=== PATIENT | female | born 1970 | race Caucasian/White ===

== ENCOUNTER 2018-09-01 12:00 | Inpatient (IN) ==
[2018-09-01] MEDS ORDERED: Td (TENIVAC) Vaccine 0.5 ML VIAL IM ONE (13:22)
--- NOTE | 2018-09-01 13:24 | Emergency Department Note ---
Disposition Clinical Impression: Cellulitis and abscess of left leg Dog bite Qualifiers: Encounter type: initial encounter Qualified Code(s): W54.0XXA - Bitten by dog, initial encounter Disposition: Admitted As Inpatient Condition: Fair Time of Disposition: 19:06 General Adult HPI - General Chief complaint: ED Wound/Laceration Stated complaint: dog bite Time Seen by Provider: 09/01/18 12:05 Source: patient, EMS Limitations: no limitations Nursing Notes Reviewed: Yes Vital Signs Reviewed: Yes - History of Present Illness HPI Narrative: Ms. Celaya is a 48F who presents today after being bit by a pitbull early Tuesday. Reports she originally went to [place] ED after being bit, however she was referred to [facility] for further evaluation. Patient stated she was unable to make it up to [facility]. Reports she has been waiting on her neighbor, to whom the dog belongs, for a ride, however she was unable to wait for further care and pain. Patient does report subjective chills. Denies any fever, stating she has not measured her temperature at home. She denies any new numbness or tingling. No significant weakness. She does report significant malodor from the left lower leg which makes her nauseous. She reports that to the best of her knowledge the dog is adequately vaccinated and has not been foaming at the mouth. She is unsure of when her last tetanus booster was. Pain Scale: 10 - Related Data Previous Rx's Medication Instructions Recorded Clarithromycin [Biaxin] 500 mg PO BID #20 tablet 02/18/18 Allergies Allergy/AdvReac Type Severity Reaction Status Date / Time No Known Allergies Allergy Unverified 02/24/15 11:27 Constitutional: Reports: chills. Denies: fever, weakness Cardiovascular: Denies: chest pain, palpitations Respiratory: Denies: cough, dyspnea, wheezes Musculoskeletal: Denies: joint swelling Integumentary: Reports: as per HPI Neurological: Denies: headache, weakness, numbness, paresthesias Past Medical History - Past Medical History Attestation: Yes The following information was validated with the patient. Source: patient Medical history: Reports: no medical history Psychiatric history: Reports: anxiety, depression REHAB SPECIALIST history: Reports: no REHAB SPECIALIST history - Social History Smoking Status: Current every day smoker Smokeless Tobacco Status: No Alcohol use: Reports: none Drug use: Reports: methamphetamine, IV Drug Use Physical Exam - General Limitations: no limitations General appearance: alert, anxious - Head Head exam: atraumatic, normocephalic, normal inspection - Eye Eye exam: Present: normal appearance, PERRL, EOMI. Absent: scleral icterus - Chest Chest inspection: Present: normal inspection, symmetric chest wall rise. Absent: tenderness - Respiratory Respiratory exam: Present: normal lung sounds bilaterally. Absent: respiratory distress, wheezes - Cardiovascular Cardiovascular exam: Present: regular rate, normal rhythm, normal heart sounds, +S1, +S2 - Abdominal Exam Abdominal exam: Present: soft, Non-Tender. Absent: tenderness, distention, guarding, rebound, rigidity - Extremities Exam Extremities exam: Present: tenderness (on left upper thigh near dog bite ). Absent: pedal edema, joint swelling, calf tenderness - Neurological Exam Neurological exam: Present: alert, oriented X3. Absent: motor sensory deficit - Skin Skin exam: Present: warm, dry, other (Laceration to left upper medial thigh with largest dimension approximately 10cm in length. Surrounding small healing lacerations noted as well. Wound is very malodorous and has visible exudate.) Course Course Narrative: Patient presented complaining of malodorous laceration. Initial history and physical exam revealed concern for cellulitis. A less likely diagnosis considered including necrotizing fasciitis due to no fever, no rapid progression of wound, or septic appearance. Initial evaluation included CBC, BMP, blood cultures, wound culture and a CT of the left lower extremity and pelvis. Gen. surgery was contacted in order to evaluate patient for possible need of surgical debridement. Patient was started empirically on IV vancomycin and Zosyn. She was also given IV pain medication. Gen. surgery elected to keep patient nothing by mouth for surgical debridement t his evening. Hospitalist was contacted and accepted patient for admission to general surgery consult. - Reevaluation(s) Reevaluation #1: Pt reports adequate pain relief with medication. No new complaints at this time. Time: 16:30 Reevaluation #2: Pt resting comfortably with no new complaints. Time: 16:50 - Consultations Consultation #1: Dr. Liban Grant of general surgery was consulted. Pictures of the wound were sent via secure [employer] message. He states he will come evaluate the patient momentarily. After evaluation he recommended continue NPO status to prepare for surgical debridement this evening. Time: 16:45 Consultation #2: Hospitalist, Dr Quesada, was contacted and accepted the patient for admission. Time: 17:25 Vital Signs Temperature 98.4 F 09/01/18 12:05 Pulse Rate 90 09/01/18 12:05 Respiratory Rate 20 09/01/18 12:05 Blood Pressure 127/67 09/01/18 12:05 O2 Sat by Pulse Oximetry 100 09/01/18 12:05 Temperature 98.0 F 09/01/18 16:35 Pulse Rate 79 09/01/18 16:35 Respiratory Rate 16 09/01/18 16:35 Blood Pressure 105/71 09/01/18 16:35 O2 Sat by Pulse Oximetry 100 09/01/18 16:35 Oxygen Delivery Oxygen Delivery Room Air Medical Decision Making - MDM Narrative Medical decision making narrative: Patient presented complaining of malodorous laceration. Initial history and physical exam revealed concern for cellulitis. A less likely diagnosis considered including necrotizing fasciitis due to no fever, no rapid progression of wound, or septic appearance. Initial evaluation included CBC, BMP, blood cultures, wound culture and a CT of the left lower extremity and pelvis. Gen. surgery was contacted in order to evaluate patient for possible need of surgical debridement. Patient was started empirically on IV vancomycin and Zosyn. She was also given IV pain medication. - Medical Records Medical records reviewed: Yes I reviewed the patient's medical records. - Lab Data Lab results reviewed: Yes I reviewed the patient's lab results. Result diagrams: 09/02/18 01:27 09/02/18 01:27 Lab Results 09/01/18 09/01/18 09/01/18 Range/Units 13:50 13:50 16:58 WBC 16.6 H (4.3-11.1) K/mcL RBC 4.33 (3.82-4.97) M/mcL Hgb 13.7 (11.5-15.4) g/dL Hct 41.7 (35.3-44.9) % MCV 96.3 (83.0-100.0) fL MCH 31.6 (28.0-33.3) pg MCHC 32.9 (31.6-35.5) g/dL RDW 12.5 (11.5-14.5) % Plt Count 257 (140-400) K/mcL MPV 11.0 (9.4-12.4) fL Seg Neutrophils % 79.0 % Band Neutrophils % 6.0 H (0-4) % Lymphocytes % 10.0 % Monocytes % 5.0 % Neutrophils # 14.1 H (1.6-8.9) K/mcL Lymphocytes # 1.7 (0.6-4.6) K/mcL Monocytes # 0.8 (0.0-1.3) K/mcL Platelet Estimate Normal (Normal) ESR 36 H (0-15) mm/hr Sodium 134 L (136-145) mEq/L Potassium 3.4 L (3.5-5.1) mEq/L Chloride 105 (98-107) mEq/L Carbon Dioxide 21 L (23-29) mEq/L BUN 18 (6-20) mg/dL Creatinine 1.11 (0.60-1.20) mg/dL Est GFR ( Amer) > 60 (> 60) Est GFR (Non-Af Amer) 52 L (> 60) BUN/Creatinine Ratio 16 (6-26) Glucose 194 H (70-105) mg/dL Calculated Osmolality 285 (280-300) Lactic Acid (0.5-2.2) mmol/L Calcium 9.4 (8.6-10.3) mg/dL 09/01/18 Range/Units 16:58 WBC (4.3-11.1) K/mcL RBC (3.82-4.97) M/mcL Hgb (11.5-15.4) g/dL Hct (35.3-44.9) % MCV (83.0-100.0) fL MCH (28.0-33.3) pg MCHC (31.6-35.5) g/dL RDW (11.5-14.5) % Plt Count (140-400) K/mcL MPV (9.4-12.4) fL Seg Neutrophils % % Band Neutrophils % (0-4) % Lymphocytes % % Monocytes % % Neutrophils # (1.6-8.9) K/mcL Lymphocytes # (0.6-4.6) K/mcL Monocytes # (0.0-1.3) K/mcL Platelet Estimate (Normal) ESR (0-15) mm/hr Sodium (136-145) mEq/L Potassium (3.5-5.1) mEq/L Chloride (98-107) mEq/L Carbon Dioxide (23-29) mEq/L BUN (6-20) mg/dL Creatinine (0.60-1.20) mg/dL Est GFR ( Amer) (> 60) Est GFR (Non-Af Amer) (> 60) BUN/Creatinine Ratio (6-26) Glucose (70-105) mg/dL Calculated Osmolality (280-300) Lactic Acid 1.7 (0.5-2.2) mmol/L Calcium (8.6-10.3) mg/dL - Radiology Data Radiology results reviewed: Yes I reviewed the patient's radiology results. Lower Extremity CT 09/01/18 14:37 IMPRESSION: 1. Subcutaneous fat stranding, skin thickening, and subcutaneous gas in the medial aspect of the left thigh compatible with cellulitis. No drainable fluid collection. 2. No acute osseous abnormality. D/ / Sean Larry MD / Sean Larry MD Interpreting Provider: Sean Larry MD Pelvis CT 09/01/18 15:29 IMPRESSION: Partial imaging of inflammatory fat stranding along the imaged portions of the medial left thigh with a small foci of gas. No evidence of an organized drainable fluid collection. Correlate for signs or symptoms of a cellulitis. Please refer to the dedicated CT of the left lower extremity for additional information. D/ / Ray Shaw / Ray Shaw Interpreting Provider: Ray Shaw Attestation Statement - Attestation Attestation: I, Jesse Araujo, examined this patient and my medical decision-making was reviewed with the ROAD MECHANIC/PA/Advanced Practice Nurse/Resident Physician. I agree with the documented findings, disposition and treatment plan as described except to the extent set forth below. 48-year-old female presents emergency department for evaluation of pain to the left proximal medial thigh. Patient was bitten by a dog 5 days ago, she was evaluated at [place] emergency department and referred to a tertiary care center for further care and evaluation. Patient did not go because she was unable to find a ride. She has had progressive worsening of her pain. She now presents with foul-smelling wound to the left proximal medial thigh with purulent drainage. No crepitus noted on exam however patient had CT which shows deep wou nd. Patient is afebrile emergency department. We spoke with the surgeon who will take her to the OR for cleaning out of her wound and further care. She is started on antibiotics in the emergency department after the initial evaluation.
[2018-09-01] MEDS ORDERED: *HR* FentaNYL (PF) 100 MCG/2 ML VIAL IVP ONE ×2 (13:33→16:18)
[2018-09-01] MEDS ORDERED: Piperacillin/Tazobactam 3.375 GM in 0.9 % Sodium Chloride Mini Bag 100 ML IVPB ONE (14:06)
[2018-09-01] MEDS ORDERED: Vancomycin 2,000 MG in D5% in Water 250 ML IVPB ONE (14:06)
[2018-09-01 14:27] LABS: BUN/Creatinine Ratio 16 (6-26); Blood Urea Nitrogen 18 mg/dL (6-20); Calcium 9.4 mg/dL (8.6-10.3); Carbon Dioxide 21 mEq/L (23-29); Chloride 105 mEq/L (98-107); Glucose 194 mg/dL (70-105); Osmolality,Calculated 285 (280-300); Potassium 3.4 mEq/L (3.5-5.1); Sodium 134 mEq/L (136-145); eGFR For Non-African Americans 52 (> 60)
[2018-09-01 14:28] LABS: Hematocrit 41.7 % (35.3-44.9); Hemoglobin 13.7 g/dL (11.5-15.4); Mean Corpuscular HGB Conc 32.9 g/dL (31.6-35.5); Mean Corpuscular Hemoglobin 31.6 pg (28.0-33.3); Mean Corpuscular Volume 96.3 fL (83.0-100.0); Platelet Count 257 K/mcL (140-400); Red Blood Count 4.33 M/mcL (3.82-4.97); Red Cell Distribution Width 12.5 % (11.5-14.5)
[2018-09-01] MEDS ORDERED: Isovue-370 500 ML BOTTLE IVP ONE (14:37)
[2018-09-01 14:49] LABS: Lymphocytes # 1.7 K/mcL (0.6-4.6); Monocytes # 0.8 K/mcL (0.0-1.3); Neutrophils # 14.1 K/mcL (1.6-8.9); Platelet Estimate Normal (Normal)
[2018-09-01] MEDS ORDERED: Tdap (Boostrix) Vaccine 0.5 ML SYRINGE IM ONE (15:00)
[2018-09-01] MEDS ORDERED: Naloxone 0.4 MG/ML INJ IVP PRN ×2 (17:52→22:03)
[2018-09-01] MEDS ORDERED: 0.9 % Sodium Chloride 1,000 ML IVC SCH (18:00)
--- NOTE | 2018-09-01 18:29 | Internal Med History&Physical ---
Date of Encounter: 09/01/18 Time of Encounter: 18:00 Internal Medicine - H&P: HPI Chief complaint: Dogbite since tuesday with malodorous wound History of present illness: Ms. Celaya is a 48 year old female with pmh of polysubstance abuse with heroin presenting complaints of pitbull bite to her left thigh on tuesday. Patient notes her neighbors pitbull came from behind and bit her unprovoked and clamped on her thigh for about 2 hours. She has 2 large foul smelling wounds on the inner thigh along with a lot of redness. Patient went to [place] on tuesday but siad she got no antibiotics and was told to go to [place] for further care but she didn't go because she didn't have a ride. She notes that the wound has gotten more foul smelling with increased drainage in the last 2 days and that's why she came to the ER today. In the ER, surgery was consulted and she was started on broad spectrum antibiotics and she is being admitted for further management Past Med Surg Social Fam HX - Past Medical History Medical history: no medical history Psychiatric history: anxiety, depression - Social History Smoking Status: Current every day smoker Smokeless Tobacco Status: No Alcohol use: none Drug use: methamphetamine, IV Drug Use - Additional Family History Additional family history: Family history reviewed and non contributory Internal Medicine - H&P: Meds Clarithromycin [Biaxin] 500 mg PO BID #20 tablet 02/18/18 [Rx] Allergy/AdvReac Type Severity Reaction Status Date / Time No Known Allergies Allergy Unverified 02/24/15 11:27 All Systems PM: A 10-system review of systems was performed and is negative for pertinent findings except as documented above in the HPI. - Constitutional Constitutional: no chills, no fever(s), no night sweats - EENT Eyes: no change in vision, no discharge, no pain, no photophobia Ears: no ear discharge, no ear pain, no tinnitus Nose, mouth and throat: no dysphagia, no nasal discharge, no neck pain, no sore throat - Cardiovascular Cardiovascular ROS IM: no chest pain, no diaphoresis, no dyspnea, no lightheadedness, no palpitations, no syncope - Respiratory Respiratory: no cough, no dyspnea, no wheezing, no excessive phlegm production - Gastrointestinal Gastrointestinal: no abdominal pain, no diarrhea, no hematemesis, no hematochezia, no melena, no nausea, no vomiting - Genitourinary Genitourinary: no change in urinary stream, no dysuria, no flank pain, no hematuria - Musculoskeletal Musculoskeletal ROS IM: no numbness, no tingling - Integumentary Integumentary IM: erythema, skin ulcer, no rash, no unusual bruising Additional comments: foul smelling drainage from wounds - Neurological Neurological ROS: no confusion, no convulsions, no focal weakness, no numbness, no tingling, no tremor(s) - Hematologic/Lymphatic Hematologic/Lymphatic: no easy bruising - Constitutional Vitals: Temp Pulse Resp BP Pulse Ox 98.0 F 79 16 105/71 100 09/01/18 16:35 09/01/18 16:35 09/01/18 16:35 09/01/18 16:35 09/01/18 16:35 Exam: NAD - Head Head exam: Present: atraumatic, normocephalic - Eye Eye exam: Present: PERRL, conjuntiva pink, sclera anicteric Pupils: Present: PERRL - Neck Neck exam general surgery: Present: supple, trachea midline. Absent: lymphadenopathy - Respiratory Respiratory exam: Present: CTAB. Absent: accessory muscle use, rales, rhonchi, wheezes - Cardiovascular Cardiovascular exam: Present: RRR, +S1, +S2. Absent: diastolic murmur, gallop, rubs, systolic murmur - GI/Abdominal GI/Abdominal exam: Present: normal bowel sounds, soft, no peritoneal signs. Absent: distended, tenderness - Extremities Exam Extremities exam: Present: warm, radial pulses palpable and symmetrical. Absent: calf tenderness, cyanotic, pedal edema Additional comments: 2 large foul smelling necrotic wound on inner thigh of left leg - Neurological Exam Neurological exam: Present: CN II-XII intact, oriented X3, no focal deficits. Absent: pronater drift, facial droop, speech deficit - Skin Skin exam: Present: dry, intact Internal Med - H&P Results - Labs CBC & Chem 7: 09/01/18 13:50 09/01/18 13:50 Labs: Short CBC 09/01/18 Range/Units 13:50 WBC 16.6 H (4.3-11.1) K/mcL Hgb 13.7 (11.5-15.4) g/dL Hct 41.7 (35.3-44.9) % Plt Count 257 (140-400) K/mcL Neutrophils # 14.1 H (1.6-8.9) K/mcL BMP 09/01/18 13:50 Sodium 134 L Potassium 3.4 L Chloride 105 Carbon Dioxide 21 L BUN 18 Creatinine 1.11 Glucose 194 H Calcium 9.4 - Impressions ITS Impressions Lower Extremity CT 09/01/18 14:37 IMPRESSION: 1. Subcutaneous fat stranding, skin thickening, and subcutaneous gas in the medial aspect of the left thigh compatible with cellulitis. No drainable fluid collection. 2. No acute osseous abnormality. D/ / Sean Larry MD / Sean Larry MD Interpreting Provider: Sean Larry MD Pelvis CT 09/01/18 15:29 IMPRESSION: Partial imaging of inflammatory fat stranding along the imaged portions of the medial left thigh with a small foci of gas. No evidence of an organized drainable fluid collection. Correlate for signs or symptoms of a cellulitis. Please refer to the dedicated CT of the left lower extremity for additional information. D/ / Ray Shaw / Ray Shaw Interpreting Provider: Ray Shaw - Assessment and Plan (1) Sepsis Current Visit: Yes Status: Acute Assessment and plan: Pt comes in with dog bite to left thigh with large foul smelling draining wounds with a leukocytois Obtain blood and wound cultures. Start on vanc and zosyn. IV fluid hydration Surgery consulted Qualifiers: Qualified Code(s): A41.9 - Sepsis, unspecified organism (2) Cellulitis of left thigh Current Visit: Yes Status: Acute Assessment and plan: See #1. Continue antibiotics (3) Abscess Current Visit: Yes Status: Acute Assessment and plan: Pt comes in with dog bite to left thigh with large foul smelling draining wounds with a leukocytois Obtain blood and wound cultures. Start on vanc and zosyn. IV fluid hydration Surgery consulted (4) Dog bite Current Visit: Yes Status: Acute Assessment and plan: Per patient dog is uptodate on vaccinations. Patient received tdap and tetanus immunoglobulin in ER Qualifiers: Encounter type: initial encounter Qualified Code(s): W54.0XXA - Bitten by dog, initial encounter (5) DVT prophylaxis Current Visit: Yes Status: Acute Assessment and plan: heparin sc - Time Spent With Patient Total time spent is greater than 50% in coordination of care (as documented) at patient's floor/unit and/or counseling patient:
[2018-09-01] MEDS ORDERED: CefOXitin 2,000 MG VIAL ONE ×2 (18:34→19:42)
[2018-09-01] MEDS ORDERED: *HR* Heparin 5,000 UNIT/ML VIAL SQ SCH (18:45)
[2018-09-01] MEDS ORDERED: *HR* HYDROmorphone 2 MG/ML SYRINGE IVP ONE (18:45)
[2018-09-01] MEDS ORDERED: Lidocaine -MPF 2% 2 ML VIAL ONE (18:46)
[2018-09-01] MEDS ORDERED: *HR* Midazolam HCl 2 MG/2 ML VIAL ONE (18:46)
[2018-09-01] MEDS ORDERED: *HR* Propofol 200 MG/20 ML VIAL IVP ONE (18:46)
[2018-09-01] MEDS ORDERED: *HR* FentaNYL (PF) 100 MCG/2 ML VIAL ONE (18:46)
--- NOTE | 2018-09-01 18:56 | Anesthesia Evaluation PreOp ---
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 DRUG ABUSE) Other Medical History: Other (DOG BITE 3 DAYS AGO, NECROTIC LEFT THIGH WOUND) Anesthesia History: No Prior Anesthetic Complications, Past Anesthesia (GB, HYST, RIGHT WRIST, C/S X4) Alcohol Use: none Drug use: methamphetamine, IV Drug Use Medications and Allergies Clarithromycin [Biaxin] 500 mg PO BID #20 tablet 02/18/18 [Rx] Allergy/AdvReac Type Severity Reaction Status Date / Time No Known Allergies Allergy Unverified 02/24/15 11:27 - Meds/Allergy Pre-op Review Medications Reviewed: Yes Allergies Reviewed: Yes Anesthesia Results - Labs 09/01/18 13:50 09/01/18 13:50 Anesthesia Exam Vital Signs/O2 Sat/Glucose, Most Recent Temp Pulse Resp BP Pulse Ox 98.0 F 79 16 105/71 100 09/01/18 16:35 09/01/18 16:35 09/01/18 16:35 09/01/18 16:35 09/01/18 16:35 Weight: 80 KG - BMI 33 NPO (# of Hours): 3 CLEARS - HEENT Mallampati: I Teeth: Edentulous (UPPER), Poor dentition - Cardiac Rhythm: Regular - Pulmonary Breath Sounds: bilateral Clear Respiratory Effort: Symmetrical Anesthesia Assess/Plan ASA Score: 4, E Level of consciousness: Anxious, Agitated Anesthetic Plan: General, Regional Nerve Block Regional Nerve Block Plan: Femoral Monitoring Plan: Standard Monitors Recovery Plan: PACU
--- NOTE | 2018-09-01 19:00 | AcuteCare Surgery Consult Note ---
Date of Encounter: 09/01/18 Time of Encounter: 18:58 Assessment and Plan (1) Open wound of left thigh due to animal bite Current Visit: Yes Status: Acute 48F with left thigh wound from dog bite that is infected with necrotic skin; NPO IVF IV ABX OR today History of Present Illness Consult date: 09/01/18 Reason for consult: other (left leg wound infection) History of present illness: 48F h/o obesity who suffered a dog bite to her left thigh ~3 days ago. She was advised to go to [facility] for further care, but did not. In addition she states she that she was never given antibiotics. Over the course of the next three days the wound began changing colors, surrounding skin turned redder, and became malodorous. She came to the ED for further evaluation. Past Med Surg Social Fam HX - Past Medical History Medical history: no medical history Psychiatric history: anxiety, depression - Past Surgical History Surgical History: no surgical history - Social History Smoking Status: Current every day smoker Smokeless Tobacco Status: No Alcohol use: none Drug use: methamphetamine, IV Drug Use Medications and Allergies Clarithromycin [Biaxin] 500 mg PO BID #20 tablet 02/18/18 [Rx] Allergy/AdvReac Type Severity Reaction Status Date / Time No Known Allergies Allergy Unverified 02/24/15 11:27 Review of Systems All systems PM: 12 point ROS negative besides HPI findings General Surgery Exam Initial Vital Signs Temp Pulse Resp BP Pulse Ox 98.4 F 90 20 127/67 100 09/01/18 12:05 09/01/18 12:05 09/01/18 12:05 09/01/18 12:05 09/01/18 12:05 - General physical appearance no distress - Eyes normal ocular movement - ENT normocephalic - Neck trachea midline, no lymphadectomy - Respiratory normal expansion, normal respiratory effort - Cardiovascular Cardiovascular exam: Present: RRR - Abdomen Abdomen general surgery: Present: soft, non tender - Integumentary Integumentary general surgery: Present: warm and dry, other (necrotic wounds on L thigh: most medial ~ 4cm x 2cm, lateral ~ 5cm x 3cm; necrotic skin, malodorous, puruelnt drainage) - Neurologic Present: CN 2-12 grossly intact - Musculoskeletal Present: normal posture - Psychiatric Psychiatric general surgery: Present: A&Ox3 Exam Initial Vital Signs Temp Pulse Resp BP Pulse Ox 98.4 F 90 20 127/67 100 09/01/18 12:05 09/01/18 12:05 09/01/18 12:05 09/01/18 12:05 09/01/18 12:05 Results - Labs 09/01/18 13:50 09/01/18 13:50 Abnormal lab results WBC 16.6 K/mcL (4.3-11.1) H 09/01/18 13:50 Band Neutrophils % 6.0 % (0-4) H 09/01/18 13:50 Neutrophils # 14.1 K/mcL (1.6-8.9) H 09/01/18 13:50 ESR 36 mm/hr (0-15) H 09/01/18 16:58 Sodium 134 mEq/L (136-145) L 09/01/18 13:50 Potassium 3.4 mEq/L (3.5-5.1) L 09/01/18 13:50 Carbon Dioxide 21 mEq/L (23-29) L 09/01/18 13:50 Est GFR (Non-Af Amer) 52 (> 60) L 09/01/18 13:50 Glucose 194 mg/dL (70-105) H 09/01/18 13:50 Diabetes panel 09/01/18 Range/Units 13:50 Sodium 134 L (136-145) mEq/L Potassium 3.4 L (3.5-5.1) mEq/L Chloride 105 (98-107) mEq/L Carbon Dioxide 21 L (23-29) mEq/L BUN 18 (6-20) mg/dL Creatinine 1.11 (0.60-1.20) mg/dL Glucose 194 H (70-105) mg/dL Calcium 9.4 (8.6-10.3) mg/dL Calcium panel 09/01/18 Range/Units 13:50 Calcium 9.4 (8.6-10.3) mg/dL Pituitary panel 09/01/18 Range/Units 13:50 Sodium 134 L (136-145) mEq/L Potassium 3.4 L (3.5-5.1) mEq/L Chloride 105 (98-107) mEq/L Carbon Dioxide 21 L (23-29) mEq/L BUN 18 (6-20) mg/dL Creatinine 1.11 (0.60-1.20) mg/dL Glucose 194 H (70-105) mg/dL Calcium 9.4 (8.6-10.3) mg/dL Adrenal panel 09/01/18 Range/Units 13:50 Sodium 134 L (136-145) mEq/L Potassium 3.4 L (3.5-5.1) mEq/L Chloride 105 (98-107) mEq/L Carbon Dioxide 21 L (23-29) mEq/L BUN 18 (6-20) mg/dL Creatinine 1.11 (0.60-1.20) mg/dL Glucose 194 H (70-105) mg/dL Calcium 9.4 (8.6-10.3) mg/dL All other labs normal. - Imaging CT scan - abdomen: report reviewed, image reviewed CT scan - pelvis: report reviewed, image reviewed Consult Discharge Plan - Plan Referrals: NONE,PCP [Primary Care Provider] -
[2018-09-01 19:07] LABS: Prothrombin Time 11.4 Seconds (9.4-12.1)
[2018-09-01] MEDS ORDERED: KETAMINE HCL 50 MG/ML SYRINGE IV ONE (19:08)
[2018-09-01] MEDS ORDERED: ROPIVACAINE/PF/NS SYRINGE INTRAART ONE (19:08)
[2018-09-01 19:10] LABS: Activated Partial Thrombo Time 23.7 Seconds (26.0-36.0)
[2018-09-01] MEDS ORDERED: *HR* Promethazine 25 MG/ML VIAL IVP PRN (19:24)
[2018-09-01] MEDS ORDERED: Ondansetron 4 MG/2 ML VIAL IVP ONE ×2 (19:24→22:03)
[2018-09-01] MEDS ORDERED: *HR* OxyCODONE Immed Rel 5 MG TABLET PO PRN (19:24)
[2018-09-01] MEDS ORDERED: Albuterol 2.5 MG/3 ML NEBULIZER IH ONE (19:24)
--- NOTE | 2018-09-01 19:59 | Anesthesia Procedures ---
Date of Encounter: 09/01/18 Time of Encounter: 19:50 Procedures: Anesthesia - Nerve Block Checklist: Correct Patient Identifier, Correct procedure Correct side: Left Block Type: Femoral Sterile Technique: Yes Ultrasound used: Yes Anatomy identified: Yes Visual spread of Local: Yes Neuro Stimulation: No Blood on Needle Aspiration: No Smooth Injection of Local: Yes Prep: Chlorhexadine Needle: 22 x 50 mm Stimuplex Local: Ropivacaine (0.25%) Volume (cc): 20 Comments: PATIENT IS ILLICIT DRUG USER, MAINLY HEROIN, WITH A LARGE NECROTIC INFECTED LEFT INNER THIGH WOUND. THE INFLAMED AREA DOES NOT EXTEND TO THE THIGH CREASE, AND PATIENT WAS STARTED ON VANCOMYCIN IN ED. BECAUSE OF THE ANTICIPATED PAIN CONTROL DIFFICULTY, WE CONSENTED AND PROCEEDED WITH THE BLOCK, DESPITE THE PROXIMITY, THE BENEFITS OUTWEIGH THE POSSIBLE RISKS. THE BLOCK WAS PERFORMED IN THE OR AFTER INDUCTION OF ANESTHESIA, BECAUSE THE PATIENT ADAMANTLY REFUSED TO HAVE IT DONE WHILE STILL AWAKE. I PERSONALLY PERFORMED THE PROCEDURE.
[2018-09-01] MEDS ORDERED: Dexamethasone 4 MG/ML VIAL ONE (20:02)
[2018-09-01] MEDS ORDERED: Ondansetron 4 MG/2 ML VIAL ONE (20:02)
[2018-09-01] MEDS ORDERED: Ipratropium/Albuterol Neb 3 ML ONE (20:53)
[2018-09-01] MEDS: Ipratropium/Albuterol Neb 3 ML IH ONE ×2 (20:56→23:39)
[2018-09-01] MEDS: *HR* HYDROmorphone (PF) 1 MG/ML SYRINGE IVP PRN ×2 (21:04→21:25)
--- NOTE | 2018-09-01 21:55 | Operative Note ---
Date of procedure: 09/01/18 Pre-op diagnosis: left thigh wound infection Post-op diagnosis: other (necrotizing soft tissue infection) Procedure: excisional debridement of left thigh washout of left thigh wound Implants: none Complications: none Anesthesia: PREM Surgeon: Liban Grant Was there an administrative assistant data entry present: No Estimated blood loss (cc): 50 Specimen: aerobic/anaerobic cultures; necrotic left thigh tissue Condition: stable Disposition: PACU Procedure in Detail: patient was brought into the operating room suite. placed in the supine position. mechanical dvt prophylaxis was placed. Underwent smooth induction of anesthesia. placed in lithotomy position. prepped and draped in the usual fashion. preoperative antibiotics were given. a timeout was held identifying correct patient pathology procedure and physician. I took aerobic and anaerobic cultures. I excised all necrotic and non viable tisuse until the tissue appeared healthy and was bleeding. The size of the wound was 10cm x 8cm x 5cm in size. I debrided down to the muscle which was active when stimulated by the bovie. I then washed the wound with 3L of saline with mefoxin impregnated. I then controlled for bleeding with electrocautery. I then packed the wound with kerlix soaked with saline impregnated with mefoxin. I then concluded the procedure and the patient was taken to PACu in stable condition.
[2018-09-01] MEDS ORDERED: Piperacillin/Tazobactam 3.375 GM in 0.9 % Sodium Chloride Mini Bag 100 ML IVPB SCH (22:00)
[2018-09-01] MEDS: 0.9 % Sodium Chloride 1,000 ML IVC SCH (22:44)
--- NOTE | 2018-09-01 22:49 | Anesthesia Evaluation Post Op ---
Date of Encounter: 09/01/18 Time of Encounter: 21:34 - Discharge PostOp Status: Transfer Patient to floor (Patient's vital signs have been reviewed. Patient is stable postoperatively and has adequately recovered from anesthesia. Patient is determined to have stable airway patency and respiratory function including respiratory rate and oxygen saturation. Patient has a stable heart rate, blood pressure and adequate hydration. Patients mental status is acceptable. Patients temperature is appropriate. Pain and nausea are adequately controlled.)
[2018-09-01] MEDS: Potassium Chloride Elixir 20 MEQ/15 ML UDC PO SCH ×2 (23:12→23:29)
[2018-09-02 02:10] LABS: Basophils % 0.1 %; Hematocrit 34.4 % (35.3-44.9); Hemoglobin 11.5 g/dL (11.5-15.4); Immature Granulocytes % 0.5 % (0-4); Lymphocytes # 0.5 K/mcL (0.6-4.6); Lymphocytes % 4.3 %; Mean Corpuscular HGB Conc 33.4 g/dL (31.6-35.5); Mean Corpuscular Volume 95.8 fL (83.0-100.0); Mean Platelet Volume 11.7 fL (9.4-12.4); Monocytes # 0.2 K/mcL (0.0-1.3); Monocytes % 1.6 %; Neutrophils # 10.4 K/mcL (1.6-8.9); Platelet Count 215 K/mcL (140-400); Red Blood Count 3.59 M/mcL (3.82-4.97); Red Cell Distribution Width 12.6 % (11.5-14.5); Segmented Neutrophils % 93.5 %
[2018-09-02] MEDS: *HR* OxyCODONE Immed Rel 5 MG TABLET PO PRN ×4 (02:30→20:03)
[2018-09-02 02:31] LABS: BUN/Creatinine Ratio 19 (6-26); Blood Urea Nitrogen 17 mg/dL (6-20); Calcium 8.5 mg/dL (8.6-10.3); Carbon Dioxide 23 mEq/L (23-29); Chloride 103 mEq/L (98-107); Glucose 442 mg/dL (70-105); Osmolality,Calculated 301 (280-300); Phosphorous 2.4 mg/dL (2.7-4.5); Potassium 3.6 mEq/L (3.5-5.1); Sodium 135 mEq/L (136-145); eGFR For Non-African Americans > 60 (> 60)
[2018-09-02] MEDS: Piperacillin/Tazobactam 3.375 GM in 0.9 % Sodium Chloride Mini Bag 100 ML IVPB SCH ×3 (05:56→21:34)
[2018-09-02] MEDS: *HR* Heparin 5,000 UNIT/ML VIAL SQ SCH ×2 (05:56→17:39)
[2018-09-02] MEDS: 0.9 % Sodium Chloride 1,000 ML IVC SCH ×2 (08:30→23:20)
--- NOTE | 2018-09-02 08:48 | Internal Med Progress Note ---
Hospitalist Progress Note - Encounter Date of Encounter: 09/02/18 Time of Encounter: 08:40 - Subjective Interval History: s/p irrigation and debridement in OR - Exam Vitals: Temp Pulse Resp BP Pulse Ox 97.7 F 64 17 107/64 99 09/02/18 06:41 09/02/18 06:41 09/02/18 06:41 09/02/18 06:41 09/02/18 06:41 Exam: General appearance: Present: A&O X 3, no acute distress Head exam: Present: normocephalic Respiratory exam: Present: CTAB. Absent: accessory muscle use, rales, rhonchi, wheezes Cardiovascular exam: Present: RRR, +S1, +S2. Absent: diastolic murmur, gallop, rubs, systolic murmur GI/Abdominal exam: Normoactive bowel sounds Extremities exam: Absent: pedal edema Neurological exam: Present: alert, oriented X3, no focal deficits. Absent: altered - Assessment and Plan (1) Sepsis Current Visit: Yes Status: Acute Assessment and Plan: Pt comes in with dog bite to left thigh with large foul smelling draining wounds with a leukocytois Obtain blood and wound cultures. Start on vanc and zosyn. IV fluid hydration Surgery saw her and performed an excisional debridement of left thigh and washout of left thight wound overnight Continue wound dressing per surgery recs and antibiotics (2) Cellulitis of left thigh Current Visit: Yes Status: Acute Assessment and Plan: See #1. Continue antibiotics (3) Abscess Current Visit: Yes Status: Acute Assessment and Plan: Pt comes in with dog bite to left thigh with large foul smelling draining wounds with a leukocytois Obtain blood and wound cultures. Start on vanc and zosyn. IV fluid hydration s/p debridement (4) Dog bite Current Visit: Yes Status: Acute Assessment and Plan: Per patient dog is uptodate on vaccinations. Patient received tdap and tetanus immunoglobulin in ER (5) DVT prophylaxis Current Visit: Yes Status: Acute Assessment and Plan: heparin sc - Time Spent with Patient Total time spent is greater than 50% in coordination of care (as documented) at patient's floor/unit and/or counseling patient: Internal Medicine: Result - Labs CBC & Chem 7: 09/02/18 01:27 09/02/18 01:27 Labs: Short CBC 09/01/18 09/02/18 Range/Units 13:50 01:27 WBC 16.6 H 11.1 (4.3-11.1) K/mcL Hgb 13.7 11.5 D (11.5-15.4) g/dL Hct 41.7 34.4 L (35.3-44.9) % Plt Count 257 215 (140-400) K/mcL Neutrophils # 14.1 H 10.4 H (1.6-8.9) K/mcL BMP 09/01/18 09/02/18 13:50 01:27 Sodium 134 L 135 L Potassium 3.4 L 3.6 Chloride 105 103 Carbon Dioxide 21 L 23 BUN 18 17 Creatinine 1.11 0.88 Glucose 194 H 442 H Calcium 9.4 8.5 L - ABG Interpretation ABG results: PT/INR, D-dimer PT 11.4 Seconds (9.4-12.1) 09/01/18 18:46 - Impressions Impressions Lower Extremity CT 09/01/18 14:37 IMPRESSION: 1. Subcutaneous fat stranding, skin thickening, and subcutaneous gas in the medial aspect of the left thigh compatible with cellulitis. No drainable fluid collection. 2. No acute osseous abnormality. D/ / Sean Larry MD / Sean Larry MD Interpreting Provider: Sean Larry MD Pelvis CT 09/01/18 15:29 IMPRESSION: Partial imaging of inflammatory fat stranding along the imaged portions of the medial left thigh with a small foci of gas. No evidence of an organized drainable fluid collection. Correlate for signs or symptoms of a cellulitis. Please refer to the dedicated CT of the left lower extremity for additional information. D/ / Ray Shaw / Ray Shaw Interpreting Provider: Ray Shaw Consult Discharge Plan - Plan Referrals: NONE,PCP [Primary Care Provider] - (1) Sepsis Qualifiers: Qualified Code(s): A41.9 - Sepsis, unspecified organism (4) Dog bite Qualifiers: Encounter type: initial encounter Qualified Code(s): W54.0XXA - Bitten by dog, initial encounter
[2018-09-02] MEDS ORDERED: Potassium Phosphate 44 MEQ in 0.9 % Sodium Chloride 250 ML IVPB ONE (08:53)
[2018-09-02] MEDS ORDERED: D5% in Water 1,000 ML IVC PRN (11:08)
[2018-09-02] MEDS ORDERED: *HR* Dextrose 50 % in Water (Syg) 50 ML SYRINGE IVP PRN (11:08)
[2018-09-02] MEDS ORDERED: Dextrose Gel 15 GM/37.5 ML TUBE PO PRN ×2 (11:08)
[2018-09-02] MEDS ORDERED: *HR* HYDROmorphone 2 MG/ML SYRINGE IVP ONE (11:29)
[2018-09-02] MEDS: Insulin LISPRO 300 UNITS/3 ML VIAL SQ SCH ×2 (11:54→16:41)
[2018-09-02] MEDS: Nicotine 21 MG PATCH.TD24 TD SCH (15:21)
--- NOTE | 2018-09-02 16:23 | AcuteCareSurgery Progress Note ---
Date of Encounter: 09/02/18 Time of Encounter: 16:22 - Assessment and Plan (1) Open wound of left thigh due to animal bite Current Visit: Yes Status: Acute 48F POD #1 s/p left thigh wound with soft tissue necrotizing wound infection after dog bite; wound improved; clean, dry; good bases; diet as tolerated dakin's 1/4 strength with kerlix daily dressing changes; possible wound vac on 09/04 Subjective Patient reports: no new complaints, feels better, still having pain, pain is less Objective Vital Signs - Last 8 Hours Temp Pulse Resp BP Pulse Ox 09/02/18 14:50 97.9 F 59 17 103/65 99 09/02/18 10:42 97.9 F 68 17 101/64 98 Intake and Output 09/02/18 09/02/18 09/02/18 07:59 15:59 23:59 Intake Total 1073 / 1073 2153 / 2153 Balance 1073 / 1073 2153 / 2153 Intake: IV Fluids 1073 / 1073 1433 / 1433 0.9 % Sodium Chloride 1,000 ML 823 / 823 823 / 823 @ 100 mls/hr IVC .Q10H [facility] Rx#: [id number] Zosyn 3.375 GM In 0.9 % Sodium 100 / 100 Chloride (Mini-Bag +) 100 ML @ 25 mls/hr IVPB Q8H [facility] Rx#: [id number] Potassium Phosphate 44 MEQ In 0 260 / 260 .9 % Sodium Chloride 250 ML @ 57.778 mls/hr IVPB ONCE ONE Rx# :[id number] Vancocin 1,000 MG In 0.9 % 250 / 250 250 / 250 Sodium Chloride 250 ML @ 167 mls/hr IVPB Q12H [facility] Rx#: [id number] Oral 720 / 720 Other: Meal Lunch Percent of Meal Consumed 100% # Voids 1 Blood Glucose* 202 246 - General physical appearance no distress - Respiratory normal expansion, normal respiratory effort - Cardiovascular Cardiovascular exam: Present: RRR - Abdomen Abdomen: Present: soft, non tender - Incision Incision: Present: open - Neurologic CN 2-12 grossly intact - Musculoskeletal normal posture - Labs 09/02/18 01:27 09/02/18 01:27 Diabetes panel 09/02/18 Range/Units 01:27 Sodium 135 L (136-145) mEq/L Potassium 3.6 (3.5-5.1) mEq/L Chloride 103 (98-107) mEq/L Carbon Dioxide 23 (23-29) mEq/L BUN 17 (6-20) mg/dL Creatinine 0.88 (0.60-1.20) mg/dL Glucose 442 H (70-105) mg/dL Calcium 8.5 L (8.6-10.3) mg/dL Calcium panel 09/02/18 Range/Units 01:27 Calcium 8.5 L (8.6-10.3) mg/dL Phosphorus 2.4 L (2.7-4.5) mg/dL Pituitary panel 09/02/18 Range/Units 01:27 Sodium 135 L (136-145) mEq/L Potassium 3.6 (3.5-5.1) mEq/L Chloride 103 (98-107) mEq/L Carbon Dioxide 23 (23-29) mEq/L BUN 17 (6-20) mg/dL Creatinine 0.88 (0.60-1.20) mg/dL Glucose 442 H (70-105) mg/dL Calcium 8.5 L (8.6-10.3) mg/dL Adrenal panel 09/02/18 Range/Units 01:27 Sodium 135 L (136-145) mEq/L Potassium 3.6 (3.5-5.1) mEq/L Chloride 103 (98-107) mEq/L Carbon Dioxide 23 (23-29) mEq/L BUN 17 (6-20) mg/dL Creatinine 0.88 (0.60-1.20) mg/dL Glucose 442 H (70-105) mg/dL Calcium 8.5 L (8.6-10.3) mg/dL Consult Discharge Plan - Plan Referrals: NONE,PCP [Primary Care Provider] -
[2018-09-02] MEDS ORDERED: *HR* HYDROmorphone (PF) 1 MG/ML SYRINGE IVP ONE (18:05)
[2018-09-02] MEDS ORDERED: Ibuprofen 600 MG TABLET PO ONE (21:16)
[2018-09-03] MEDS: *HR* OxyCODONE Immed Rel 5 MG TABLET PO PRN ×4 (02:27→20:35)
[2018-09-03] MEDS: *HR* Heparin 5,000 UNIT/ML VIAL SQ SCH ×2 (05:40→18:00)
[2018-09-03] MEDS: Piperacillin/Tazobactam 3.375 GM in 0.9 % Sodium Chloride Mini Bag 100 ML IVPB SCH ×2 (05:41→14:04)
[2018-09-03 06:37] LABS: Estimated Average Glucose 120 mg/dl; Hemoglobin A1C 5.8 %
--- NOTE | 2018-09-03 08:00 | Internal Med Progress Note ---
Hospitalist Progress Note - Encounter Date of Encounter: 09/03/18 Time of Encounter: 08:00 - Subjective Interval History: No acute events overnight - Exam Vitals: Temp Pulse Resp BP Pulse Ox 97.6 F 51 16 91/58 96 09/03/18 04:37 09/03/18 04:37 09/03/18 04:37 09/03/18 04:37 09/03/18 04:37 Exam: General appearance: Present: A&O X 3, no acute distress Head exam: Present: normocephalic Respiratory exam: Present: CTAB. Absent: accessory muscle use, rales, rhonchi, wheezes Cardiovascular exam: Present: RRR, +S1, +S2. Absent: diastolic murmur, gallop, rubs, systolic murmur GI/Abdominal exam: Normoactive bowel sounds Extremities exam: Absent: pedal edema Neurological exam: Present: alert, oriented X3, no focal deficits. Absent: altered - Assessment and Plan (1) Sepsis Current Visit: Yes Status: Acute Assessment and Plan: Pt comes in with dog bite to left thigh with large foul smelling draining wounds with a leukocytois Obtain blood and wound cultures. Start on vanc and zosyn. IV fluid hydration Surgery saw her and performed an excisional debridement of left thigh and washout of left thigh wound on 09/02 Continue wound dressing per surgery recs and antibiotics (2) Cellulitis of left thigh Current Visit: Yes Status: Acute Assessment and Plan: See #1. Continue antibiotics (3) Abscess Current Visit: Yes Status: Acute Assessment and Plan: Pt comes in with dog bite to left thigh with large foul smelling draining wounds with a leukocytois Obtain blood and wound cultures. Start on vanc and zosyn. IV fluid hydration s/p debridement (4) Dog bite Current Visit: Yes Status: Acute Assessment and Plan: Per patient dog is uptodate on vaccinations. Patient received tdap and tetanus immunoglobulin in ER (5) DVT prophylaxis Current Visit: Yes Status: Acute Assessment and Plan: heparin sc - Time Spent with Patient Total time spent is greater than 50% in coordination of care (as documented) at patient's floor/unit and/or counseling patient: Internal Medicine: Result - Labs CBC & Chem 7: 09/03/18 08:29 09/03/18 08:29 - ABG Interpretation ABG results: PT/INR, D-dimer PT 11.4 Seconds (9.4-12.1) 09/01/18 18:46 Consult Discharge Plan - Plan Referrals: NONE,PCP [Primary Care Provider] - ___ (1) Sepsis Qualifiers: Qualified Code(s): A41.9 - Sepsis, unspecified organism (4) Dog bite Qualifiers: Encounter type: initial encounter Qualified Code(s): W54.0XXA - Bitten by dog, initial encounter
[2018-09-03] MEDS: 0.9 % Sodium Chloride 1,000 ML IVC SCH (08:34)
[2018-09-03] MEDS: Insulin LISPRO 300 UNITS/3 ML VIAL SQ SCH ×3 (08:36→16:34)
[2018-09-03] MEDS: Nicotine 21 MG PATCH.TD24 TD SCH (08:39)
[2018-09-03 08:43] LABS: Basophils % 0.2 %; Eosinophils # 0.1 K/mcL (0.0-0.6); Eosinophils % 1.3 %; Hematocrit 33.6 % (35.3-44.9); Hemoglobin 10.9 g/dL (11.5-15.4); Immature Granulocytes % 1.2 % (0-4); Lymphocytes # 2.5 K/mcL (0.6-4.6); Lymphocytes % 27.4 %; Mean Corpuscular HGB Conc 32.4 g/dL (31.6-35.5); Mean Corpuscular Hemoglobin 31.6 pg (28.0-33.3); Mean Corpuscular Volume 97.4 fL (83.0-100.0); Mean Platelet Volume 11.4 fL (9.4-12.4); Monocytes # 0.6 K/mcL (0.0-1.3); Monocytes % 6.5 %; Neutrophils # 5.8 K/mcL (1.6-8.9); Platelet Count 221 K/mcL (140-400); Red Blood Count 3.45 M/mcL (3.82-4.97); Red Cell Distribution Width 12.8 % (11.5-14.5); Segmented Neutrophils % 63.4 %
[2018-09-03] MEDS ORDERED: *HR* HYDROmorphone 2 MG/ML SYRINGE IVP ONE (08:47)
[2018-09-03 09:03] LABS: BUN/Creatinine Ratio 27 (6-26); Blood Urea Nitrogen 19 mg/dL (6-20); Calcium 8.5 mg/dL (8.6-10.3); Carbon Dioxide 21 mEq/L (23-29); Chloride 113 mEq/L (98-107); Glucose 104 mg/dL (70-105); Osmolality,Calculated 289 (280-300); Potassium 4.6 mEq/L (3.5-5.1); Sodium 138 mEq/L (136-145); eGFR For Non-African Americans > 60 (> 60)
--- NOTE | 2018-09-03 10:36 | AcuteCareSurgery Progress Note ---
Date of Encounter: 09/03/18 Time of Encounter: 10:35 - Assessment and Plan (1) Open wound of left thigh due to animal bite Current Visit: Yes Status: Acute 48F POD #2 s/p left thigh wound with soft tissue necrotizing wound infection after dog bite; wound improved; clean, dry; good bases; diet as tolerated dakin's 1/4 strength with kerlix daily dressing changes; possible wound vac on 09/04 cares per primary team Subjective Patient reports: no new complaints, feels better, still having pain Objective Vital Signs - Last 8 Hours Temp Pulse Resp BP Pulse Ox 09/03/18 07:58 97.5 F L 58 18 106/68 97 09/03/18 04:37 97.6 F 51 16 91/58 96 Intake and Output 09/02/18 09/03/18 09/03/18 23:59 07:59 15:59 Intake Total 1100 / 1100 350 / 350 1000 / 1000 Output Total 300 / 300 Balance 1100 / 1100 50 / 50 1000 / 1000 Intake: IV Fluids 1100 / 1100 350 / 350 1000 / 1000 0.9 % Sodium Chloride 1,000 ML 1000 / 1000 1000 / 1000 @ 100 mls/hr IVC .Q10H [facility] Rx#: [id number] Zosyn 3.375 GM In 0.9 % Sodium 100 / 100 100 / 100 Chloride (Mini-Bag +) 100 ML @ 25 mls/hr IVPB Q8H [facility] Rx#: [id number] Vancocin 1,000 MG In 0.9 % 250 / 250 Sodium Chloride 250 ML @ 167 mls/hr IVPB Q12H [facility] Rx#: [id number] Output: Urine 300 / 300 Other: Percent of Meal Consumed 80% # Voids 1 # Bowel Movements 0 Weight 89.7 kg Blood Glucose* 152 90 Patient Weight 09/03/18 23:59 Weight 89.7 kg - General physical appearance no distress - Respiratory normal expansion, normal respiratory effort - Cardiovascular Cardiovascular exam: Present: RRR - Integumentary other (wound - clean bases, no necrotic tissue; pink, viable; ) - Neurologic CN 2-12 grossly intact - Psychiatric oriented to time, oriented to person, oriented to place - Labs 09/03/18 08:29 09/03/18 08:29 Diabetes panel 09/02/18 09/03/18 Range/Units 01:27 08:29 Sodium 138 (136-145) mEq/L Potassium 4.6 (3.5-5.1) mEq/L Chloride 113 H (98-107) mEq/L Carbon Dioxide 21 L (23-29) mEq/L BUN 19 (6-20) mg/dL Creatinine 0.71 (0.60-1.20) mg/dL Glucose 104 (70-105) mg/dL Hemoglobin A1c 5.8 H ( - 5.6) % Calcium 8.5 L (8.6-10.3) mg/dL Calcium panel 09/03/18 Range/Units 08:29 Calcium 8.5 L (8.6-10.3) mg/dL Pituitary panel 09/03/18 Range/Units 08:29 Sodium 138 (136-145) mEq/L Potassium 4.6 (3.5-5.1) mEq/L Chloride 113 H (98-107) mEq/L Carbon Dioxide 21 L (23-29) mEq/L BUN 19 (6-20) mg/dL Creatinine 0.71 (0.60-1.20) mg/dL Glucose 104 (70-105) mg/dL Calcium 8.5 L (8.6-10.3) mg/dL Adrenal panel 09/03/18 Range/Units 08:29 Sodium 138 (136-145) mEq/L Potassium 4.6 (3.5-5.1) mEq/L Chloride 113 H (98-107) mEq/L Carbon Dioxide 21 L (23-29) mEq/L BUN 19 (6-20) mg/dL Creatinine 0.71 (0.60-1.20) mg/dL Glucose 104 (70-105) mg/dL Calcium 8.5 L (8.6-10.3) mg/dL Consult Discharge Plan - Plan Referrals: NONE,PCP [Primary Care Provider] -
[2018-09-03] MEDS ORDERED: Ketorolac 15 MG/ML VIAL IVP PRN (18:32)
[2018-09-04] MEDS: Piperacillin/Tazobactam 3.375 GM in 0.9 % Sodium Chloride Mini Bag 100 ML IVPB SCH ×2 (01:58→08:04)
[2018-09-04] MEDS: 0.9 % Sodium Chloride 1,000 ML IVC SCH ×2 (02:00→04:03)
[2018-09-04] MEDS: *HR* OxyCODONE Immed Rel 5 MG TABLET PO PRN ×5 (04:05→22:57)
[2018-09-04] MEDS: *HR* Heparin 5,000 UNIT/ML VIAL SQ SCH ×2 (05:44→17:47)
[2018-09-04] MEDS: Nicotine 21 MG PATCH.TD24 TD SCH (08:04)
--- NOTE | 2018-09-04 08:33 | AcuteCareSurgery Progress Note ---
Date of Encounter: 09/04/18 Time of Encounter: 07:15 - Assessment and Plan (1) Open wound of left thigh due to animal bite Current Visit: Yes Status: Acute (2) Cellulitis and abscess of left leg Current Visit: Yes Status: Acute (3) Status post incision and drainage Current Visit: Yes Status: Acute Plan to apply wound vac today. Add Zosyn IV. Subjective Patient reports: still having pain, nausea, vomiting Objective Vital Signs - Last 8 Hours Temp Pulse Resp BP Pulse Ox 09/04/18 08:11 97.3 F L 62 16 139/70 99 09/04/18 03:22 97.5 F L 71 19 128/77 98 Intake and Output 09/03/18 09/04/18 09/04/18 23:59 07:59 15:59 Intake Total 350 / 350 0 / 0 Output Total 0 / 0 Balance 350 / 350 0 / 0 Intake: IV Fluids 350 / 350 Zosyn 3.375 GM In 0.9 % Sodium 100 / 100 Chloride (Mini-Bag +) 100 ML @ 25 mls/hr IVPB Q8H [facility] Rx#: [id number] Vancocin 1,000 MG In 0.9 % 250 / 250 Sodium Chloride 250 ML @ 167 mls/hr IVPB Q12H [facility] Rx#: [id number] Oral 0 / 0 Output: Urine 0 / 0 Other: Blood Glucose* 102 114 - General physical appearance no distress, moderate pain - Eyes PERRL - Respiratory normal respiratory effort - Cardiovascular Cardiovascular exam: Present: RRR - Abdomen Abdomen: Present: bowel sounds present, soft, non tender - Incision Incision: Present: open (packing in place) - Neurologic CN 2-12 grossly intact - Psychiatric oriented to time, oriented to person, oriented to place - Labs 09/03/18 08:29 09/03/18 08:29 Diabetes panel 09/03/18 Range/Units 08:29 Sodium 138 (136-145) mEq/L Potassium 4.6 (3.5-5.1) mEq/L Chloride 113 H (98-107) mEq/L Carbon Dioxide 21 L (23-29) mEq/L BUN 19 (6-20) mg/dL Creatinine 0.71 (0.60-1.20) mg/dL Glucose 104 (70-105) mg/dL Calcium 8.5 L (8.6-10.3) mg/dL Calcium panel 09/03/18 Range/Units 08:29 Calcium 8.5 L (8.6-10.3) mg/dL Pituitary panel 09/03/18 Range/Units 08:29 Sodium 138 (136-145) mEq/L Potassium 4.6 (3.5-5.1) mEq/L Chloride 113 H (98-107) mEq/L Carbon Dioxide 21 L (23-29) mEq/L BUN 19 (6-20) mg/dL Creatinine 0.71 (0.60-1.20) mg/dL Glucose 104 (70-105) mg/dL Calcium 8.5 L (8.6-10.3) mg/dL Adrenal panel 09/03/18 Range/Units 08:29 Sodium 138 (136-145) mEq/L Potassium 4.6 (3.5-5.1) mEq/L Chloride 113 H (98-107) mEq/L Carbon Dioxide 21 L (23-29) mEq/L BUN 19 (6-20) mg/dL Creatinine 0.71 (0.60-1.20) mg/dL Glucose 104 (70-105) mg/dL Calcium 8.5 L (8.6-10.3) mg/dL Consult Discharge Plan - Plan Referrals: NONE,PCP [Primary Care Provider] -
--- NOTE | 2018-09-04 08:46 | Internal Med Progress Note ---
Hospitalist Progress Note - Encounter Date of Encounter: 09/04/18 Time of Encounter: 08:40 - Subjective Interval History: Had wound vac placed this am - Exam Vitals: Temp Pulse Resp BP Pulse Ox 97.3 F L 62 16 139/70 99 09/04/18 08:11 09/04/18 08:11 09/04/18 08:11 09/04/18 08:11 09/04/18 08:11 Exam: General appearance: Present: A&O X 3, no acute distress Head exam: Present: normocephalic Respiratory exam: Present: CTAB. Absent: accessory muscle use, rales, rhonchi, wheezes Cardiovascular exam: Present: RRR, +S1, +S2. Absent: diastolic murmur, gallop, rubs, systolic murmur GI/Abdominal exam: Normoactive bowel sounds Extremities exam: Absent: pedal edema Neurological exam: Present: alert, oriented X3, no focal deficits. Absent: altered - Assessment and Plan (1) Sepsis Current Visit: Yes Status: Acute Assessment and Plan: Pt comes in with dog bite to left thigh with large foul smelling draining wounds with a leukocytois Obtain blood and wound cultures. Start on vanc and zosyn. IV fluid hydration Surgery saw her and performed an excisional debridement of left thigh and washout of left thigh wound on 09/02 Wound vac placed today. Plan to complete 10 day course of augmentin Patient has opted to go home with home health. Wound vac to be ordered before she leaves (2) Cellulitis of left thigh Current Visit: Yes Status: Acute Assessment and Plan: See #1. Continue antibiotics (3) Abscess Current Visit: Yes Status: Acute Assessment and Plan: Pt comes in with dog bite to left thigh with large foul smelling draining wounds with a leukocytois Obtain blood and wound cultures. Start on vanc and zosyn. IV fluid hydration s/p debridement (4) Dog bite Current Visit: Yes Status: Acute Assessment and Plan: Per patient dog is uptodate on vaccinations. Patient received tdap and tetanus immunoglobulin in ER (5) DVT prophylaxis Current Visit: Yes Status: Acute Assessment and Plan: heparin sc - Time Spent with Patient Total time spent is greater than 50% in coordination of care (as documented) at patient's floor/unit and/or counseling patient: Internal Medicine: Result - Labs CBC & Chem 7: 09/04/18 09:51 09/04/18 09:51 Labs: BMP 09/03/18 08:29 Sodium 138 Potassium 4.6 Chloride 113 H Carbon Dioxide 21 L BUN 19 Creatinine 0.71 Glucose 104 Calcium 8.5 L - ABG Interpretation ABG results: PT/INR, D-dimer PT 11.4 Seconds (9.4-12.1) 09/01/18 18:46 Consult Discharge Plan - Plan Additional Instructions: Black foam wound vac to left thigh. Maintain -125 mmhg continuous suction. Changes Q: m/w/f. On day of dressing changes. Remove wound vac. 1)Shower with antibacterial soap. 2)Pat dry. 3)Apply Alkare wipes to the surround intact skin. 4)Place black foam in wound. 5)Cover with simplace dressing. 6) No bridging is necessary. Referrals: Liban Grant MD [Non-Partnered Physician] - 09/19/18 9:30 am (In wound Care clinic) NONE,PCP [Primary Care Provider] - (1) Sepsis Qualifiers: Qualified Code(s): A41.9 - Sepsis, unspecified organism (4) Dog bite Qualifiers: Encounter type: initial encounter Qualified Code(s): W54.0XXA - Bitten by dog, initial encounter
[2018-09-04] MEDS: Insulin LISPRO 300 UNITS/3 ML VIAL SQ SCH ×3 (09:47→16:22)
--- NOTE | 2018-09-04 10:29 | Event Note ---
Date of Encounter: 09/04/18 Time of Encounter: 10:26 Wound vac with - 125 mmHg placed to the left upper thigh. Change Q M/W/F. Patient tolerated with significant discomfort. No leak was noted. Patient is agreeable to ECF for wound VAC and pain control management. Social work will place PT/OT orders if needed. Patient has not ambulated since the injury occurred. Unclear of patient's ability to ambulate given the extensive nature of the wound. Agree with ECF/rehab placement. Will defer to primary team. Surgery will sign off at this time. Thank you for allowing us to participate in Ms. Celaya's care. Follow-up with Dr. Grant in two-three weeks [in wound care] for on going treatment and consideration for skin grafting. Appt made for 09/19/2018 [id number]
[2018-09-04 10:32] LABS: Hematocrit 36.5 % (35.3-44.9); Mean Corpuscular HGB Conc 32.9 g/dL (31.6-35.5); Mean Corpuscular Hemoglobin 31.8 pg (28.0-33.3); Mean Corpuscular Volume 96.8 fL (83.0-100.0); Platelet Count 211 K/mcL (140-400); Red Blood Count 3.77 M/mcL (3.82-4.97); Red Cell Distribution Width 12.3 % (11.5-14.5)
[2018-09-04 10:51] LABS: BUN/Creatinine Ratio 19 (6-26); Blood Urea Nitrogen 16 mg/dL (6-20); Calcium 8.7 mg/dL (8.6-10.3); Carbon Dioxide 25 mEq/L (23-29); Chloride 106 mEq/L (98-107); Glucose 210 mg/dL (70-105); Magnesium 1.7 mg/dL (1.6-2.6); Osmolality,Calculated 291 (280-300); Phosphorous 3.9 mg/dL (2.7-4.5); Sodium 137 mEq/L (136-145); eGFR For Non-African Americans > 60 (> 60)
[2018-09-04 11:11] LABS: Lymphocytes # 2.9 K/mcL (0.6-4.6); Monocytes # 0.7 K/mcL (0.0-1.3); Neutrophils # 5.2 K/mcL (1.6-8.9); Platelet Estimate Normal (Normal)
[2018-09-04] MEDS ORDERED: Ibuprofen 600 MG TABLET PO PRN (11:42)
[2018-09-04] MEDS ORDERED: Aminoglycoside Consult 1 EACH MC ONE (14:15)
[2018-09-04] MEDS: Ondansetron 4 MG/2 ML VIAL IVP SCH ×2 (15:26→17:47)
[2018-09-05] MEDS: Ondansetron 4 MG/2 ML VIAL IVP SCH (00:14)
[2018-09-05] MEDS: *HR* OxyCODONE Immed Rel 5 MG TABLET PO PRN ×3 (05:33→11:42)
[2018-09-05 06:19] LABS: Hematocrit 34.8 % (35.3-44.9); Mean Corpuscular HGB Conc 34.5 g/dL (31.6-35.5); Mean Corpuscular Hemoglobin 31.8 pg (28.0-33.3); Mean Corpuscular Volume 92.3 fL (83.0-100.0); Mean Platelet Volume 12.1 fL (9.4-12.4); Platelet Count 255 K/mcL (140-400); Red Blood Count 3.77 M/mcL (3.82-4.97); Red Cell Distribution Width 12.3 % (11.5-14.5)
[2018-09-05 06:43] LABS: BUN/Creatinine Ratio 13 (6-26); Blood Urea Nitrogen 9 mg/dL (6-20); Calcium 8.6 mg/dL (8.6-10.3); Carbon Dioxide 24 mEq/L (23-29); Chloride 108 mEq/L (98-107); Glucose 148 mg/dL (70-105); Magnesium 1.6 mg/dL (1.6-2.6); Osmolality,Calculated 291 (280-300); Phosphorous 4.1 mg/dL (2.7-4.5); Potassium 3.5 mEq/L (3.5-5.1); Sodium 140 mEq/L (136-145); eGFR For Non-African Americans > 60 (> 60)
[2018-09-05 07:13] LABS: Lymphocytes # 3.1 K/mcL (0.6-4.6); Monocytes # 0.3 K/mcL (0.0-1.3); Neutrophils # 4.8 K/mcL (1.6-8.9); Platelet Estimate Normal (Normal)
[2018-09-05] MEDS: *HR* Heparin 5,000 UNIT/ML VIAL SQ SCH (07:30)
[2018-09-05] MEDS: Insulin LISPRO 300 UNITS/3 ML VIAL SQ SCH ×2 (07:30→11:43)
--- NOTE | 2018-09-05 08:23 | Discharge Summary ---
Date of Encounter: 09/05/18 Time of Encounter: 08:00 - Discharge Diagnosis (1) Sepsis Priority: Primary Status: Acute Assessment and Plan: 48 year old female with pmh of polysubstance abuse with heroin presenting complaints of pitbull bite to her left thigh on tuesday. Patient notes her neighbors pitbull came from behind and bit her unprovoked and clamped on her thigh for about 2 hours. She has 2 large foul smelling wounds on the inner thigh along with a lot of redness. Patient went to [place] on tuesday but siad she got no antibiotics and was told to go to [facility] for further care but she didn't go because she didn't have a ride. She notes that the wound has gotten more foul smelling with increased drainage in the last 2 days and that's why she came to the ER today. In the ER, surgery was consulted and she was started on broad spectrum antibiotics and she is being admitted for further management She was assessed with dog bite to left thigh with large foul smelling draining wounds with sepsis She was started on vanc and zosyn and IV fluid hydration. Surgery saw her and performed an excisional debridement of left thigh and washout of left thigh wound on 09/02. Wound vac placed on 09/04 . Plan to complete 10 day course of augmentin for wound cultures groing strep pyogenes. Patient has opted to go home with home health. Wound vac was ordered before she left. 35 minutes was spent discharging this patient Qualifiers: Qualified Code(s): A41.9 - Sepsis, unspecified organism (2) Cellulitis of left thigh Priority: Primary Status: Acute (3) Abscess Priority: Primary Status: Acute (4) Dog bite Priority: Primary Status: Acute Qualifiers: Encounter type: initial encounter Qualified Code(s): W54.0XXA - Bitten by dog, initial encounter (5) DVT prophylaxis Priority: Primary Status: Acute Hospital course: Ms. Celaya is a 48 year old female - Time Spent with Patient Total time spent providing and/or coordinating discharge services: - Discharge Medications Prescriptions: New OxyCODONE Immed Rel [Roxicodone 5 MG] 5 mg PO Q4HR 6 Days #30 tablet Ondansetron ODT [Zofran ODT] 4 mg SL Q6HR PRN #30 tab.rapdis PRN Reason: Nausea And Vomiting Amoxicillin/Clavulanate [Augmentin] 875 mg PO BIDWM 10 Days #20 tablet Ibuprofen [Motrin] 600 mg PO TID PRN #30 tablet PRN Reason: Mild Pain Nicotine Patch [Nicoderm] 21 mg TD DAILY #30 patch.td24 Home Medications: Amoxicillin/Clavulanate [Augmentin] 875 mg PO BIDWM 10 Days #20 tablet 09/05/18 [Rx] Ibuprofen [Motrin] 600 mg PO TID PRN #30 tablet 09/05/18 [Rx] Nicotine Patch [Nicoderm] 21 mg TD DAILY #30 patch.td24 09/05/18 [Rx] Ondansetron ODT [Zofran ODT] 4 mg SL Q6HR PRN #30 tab.rapdis 09/05/18 [Rx] OxyCODONE Immed Rel [Roxicodone 5 MG] 5 mg PO Q4HR 6 Days #30 tablet 09/05/18 [Rx] Allergies/Adverse Reactions: Allergy/AdvReac Type Severity Reaction Status Date / Time No Known Allergies Allergy Verified 09/03/18 16:42 Date of admission: 09/01/18 19:24 Primary care physician: PCP NONE Consults: 09/04/18 09:31 Consult to Capacity Planning Manager [CONS] Stat Reason for SW Consult: Healthcare vs placement for wound VAC. Papers are filled out and placed in the patient's discharge folder (will need [facility] agency info added prior to faxing forms). Placement is likely better for patient d/t size and location of wound and wv as well as pain control. - Constitutional Vitals: Temp Pulse Resp BP Pulse Ox 98.3 F 80 15 143/83 96 09/05/18 07:16 09/05/18 07:16 09/05/18 07:16 09/05/18 07:16 09/05/18 07:16 Exam: General appearance: Present: A&O X 3, no acute distress Head exam: Present: normocephalic Respiratory exam: Present: CTAB. Absent: accessory muscle use, rales, rhonchi, wheezes Cardiovascular exam: Present: RRR, +S1, +S2. Absent: diastolic murmur, gallop, rubs, systolic murmur GI/Abdominal exam: Normoactive bowel sounds Extremities exam: Absent: pedal edema Neurological exam: Present: alert, oriented X3, no focal deficits. Absent: altered - Patient Status Disposition: Home Health Service Condition: Fair - Discharge Instructions Instructions: Relaxation and Meditation (DC), Negative Pressure Wound Therapy (DC) Follow Up With: Liban Grant MD [Non-Partnered Physician] - 09/19/18 9:30 am (In wound Care clinic) NONE,PCP [Primary Care Provider] - Additional Instructions: Black foam wound vac to left thigh. Maintain -125 mmhg continuous suction. Changes Q: m/w/f. On day of dressing changes. Remove wound vac. 1)Shower with antibacterial soap. 2)Pat dry. 3)Apply Alkare wipes to the surround intact skin. 4)Place black foam in wound. 5)Cover with simplace dressing. 6) No bridging is necessary.
[2018-09-05] MEDS: Nicotine 21 MG PATCH.TD24 TD SCH (08:41)
[2018-09-05 10:48] VITALS: BP 146/85
[2018-09-05] MEDS ORDERED: traMADol 50 MG TABLET PO PRN (11:35)
[2018-09-05] MEDS ORDERED: Ondansetron ODT 4 MG TAB.RAPDIS SL PRN (11:36)
--- NOTE | 2018-09-05 12:35 | Physician Discharge Referral ---
Home Health/Hosp Referral Info Transfer to: Home Health - Diagnosis (1) Sepsis Priority: Primary Status: Acute (2) Cellulitis of left thigh Priority: Primary Status: Acute (3) Abscess Priority: Primary Status: Acute (4) Dog bite Priority: Primary Status: Acute (5) DVT prophylaxis Priority: Primary Status: Acute - Respiratory Orders Smoking Cessation: Smoking cessation has been advised. For more information, call the [employer] Quit Line at [phone]-NOW. - Dressing/Wound Care Type of Dressing/Treatments w/Frequency: Wound vac with - 125 mmHg placed to the left upper thigh. Change Q M/W/F. Toe touch WB only - Diet/Nutrition Diet/Nutrition Orders: Cardiac - Activity Activity Orders: Ambulate Activity: List: Toe touch WB only - Services Needed Following services are medically necessary services: Nursing, Home Health Aide, Physical Therapy - Transfer Medications Home Medications: No Known Home Drugs 09/03/18 [History] Allergies/Adverse Reactions: Allergy/AdvReac Type Severity Reaction Status Date / Time No Known Allergies Allergy Verified 09/03/18 16:42 Certification: Further, I certify that my clinical findings support that this patient is homebound (i.e. absences from home require considerable and taxing effort and are for medical reasons or [employer] services or infrequently or short duration when for other reasons) because: Homebound Reason: Patient requires assistance of a person or device to safely leave home Attestation: My signature below is to certify that this patient is under my care and that I, or nurse practitioner, or a physician's fundraising assistant working with me, has a [id number] encounter with this patient.
== END 2018-09-05 14:16 | disposition home health service (06) | DRG 710 ==
LOC: 3ANU 12:00 → EMEROOARM 12:00 → OBSVTOIN 19:24 → 3ANU 19:28
PROVIDERS: ADMIT Hospitalist; ATTEND Hospitalist